=== PATIENT | female | born 1995 | race Caucasian/White ===

== ENCOUNTER 2017-07-20 19:06 | Outpatient (CLI) | payer BC, MEDICAID ==
[2017-07-20 21:00] LABS: URINE BARBITURATES SCREEN NEGATIVE; URINE METHADONE SCREEN NEGATIVE; URINE OPIATES LOW NEGATIVE; URINE PHENCYCLIDINE SCREEN NEGATIVE
[2017-07-20 21:18] LABS: APPEARANCE,URINE CLOUDY; BILIRUBIN,URINE NEGATIVE (NEGATIVE); GLUCOSE, URINE NEGATIVE (NEGATIVE); KETONES,URINE NEGATIVE (NEGATIVE); LEUKOCYTE ESTERASE,URINE TRACE (NEGATIVE); NITRITE,URINE NEGATIVE (NEGATIVE); PROTEIN,URINE NEGATIVE (NEGATIVE); URINE SPECIFIC GRAVITY 1.025
--- NOTE | 2017-07-20 21:24 | Non Stress Test Report ---
Non Stress Test Datetime Report Generated by CPN: 07/20/2017 21:24 DEMOGRAPHIC EGA NST: 39.5 INDICATION Indication for Study: Other Indication for Study (NST) Other: LC VITAL SIGNS Temperature - NST: 98.2 Pulse - NST: 111 RESP - NST: 18 NBPSYS NST: 141 NBPDIA NST: 79 MONITORING Monitor Explained: Monitor Explained; Test Explained; Patient Verbalized Understanding Time on Monitor: 07/20/2017 19:31 Time off Monitor: 07/20/2017 21:09 NST Duration: 98 NST INTERVENTIONS NST Interventions: None BABY A: [id number] BABY A Movement : Present Contraction Frequency : 10-15 FHR Baseline : 140 Accelerations : 15X15 Decelerations : None Variability : Moderate 6-25bpm NST Review: Meets Criteria for Reactive NST NST Review and Verified By : Hood Akbar RN NST Results: Reactive NST REPORT Report Trigger: Send Report Report Trigger: Send Report
== END 2017-07-20 21:05 | disposition home or self-care (01) ==
LOC: LC 19:06
PROVIDERS: ATTEND Obstetrics & Gynecology
PROC: 4A1HXCZ Monitoring of Products of Conception, Cardiac Rate, External Approach (ICD-10-PCS; principal; 2017-07-20)
DX: O47.1 False labor at or after 37 completed weeks of gestation (principal); Z3A.39 39 weeks gestation of pregnancy
CPT/HCPCS: 59025; 80307; 81005

== ENCOUNTER 2017-07-22 15:02 | Outpatient (CLI) | payer BC, MEDICAID ==
[2017-07-22 16:36] LABS: APPEARANCE,URINE SLIGHTLY-CLOUDY; BILIRUBIN,URINE NEGATIVE (NEGATIVE); GLUCOSE, URINE NEGATIVE (NEGATIVE); KETONES,URINE 20 mg/dL (NEGATIVE); LEUKOCYTE ESTERASE,URINE NEGATIVE (NEGATIVE); NITRITE,URINE NEGATIVE (NEGATIVE); PROTEIN,URINE NEGATIVE (NEGATIVE); URINE SPECIFIC GRAVITY 1.016; UROBILINOGEN,URINE NEGATIVE mg/dL (<2.0)
[2017-07-22 16:53] LABS: URINE BARBITURATES SCREEN NEGATIVE; URINE METHADONE SCREEN NEGATIVE; URINE OPIATES LOW NEGATIVE; URINE PHENCYCLIDINE SCREEN NEGATIVE
--- NOTE | 2017-07-22 18:27 | RADIOLOGY REPORT (SQ) ---
EXAM DESCRIPTION: U/S PROFILE W/O STRESS COMPLETED DATE/TIME: 07/22/2017 6:10 pm REASON FOR STUDY: nonreactive NST COMPARISON: None. TECHNIQUE: Limited hughes-scale realtime and static images of the fetus to measure specified parameter s. LIMITATIONS: None. FINDINGS: HEART RATE: 132 beats per minute. RICYK: 9.2 cm. POSTURE AND TONE: 2 points. MOVEMENT: 2 points. BREATHING MOVEMENT: 2 points. QUALITATIVE RICKY: 2 points. OTHER: No other significant finding. IMPRESSION: BIOPHYSICAL PROFILE: 06/15. Trimester of : Third - 28 weeks to delivery COMMENT: BREATHING MOVEMENTS: 2 POINTS: PRESENT 0 POINTS: ABSENT MOTION: 2 POINTS: PRESENT 0 POINTS: ABSENT TONE: 2 POINTS: PRESENT 0 POINTS: ABSENT AMNIOTIC FLUID VOLUME: 2 POINTS: LARGEST POCKET GREATER THAN 2 CM DEPTH. 0 POINTS: NO POCKET OF 2 CM. TECHNICAL DOCUMENTATION: JOB ID: [id number] [employer]- All Rights Reserved
--- NOTE | 2017-07-22 18:50 | Non Stress Test Report ---
Non Stress Test Datetime Report Generated by CPN: 07/22/2017 18:50 DEMOGRAPHIC EGA NST: 40.0 INDICATION Indication for Study: Ordered by Provider MONITORING Monitor Explained: Monitor Explained; Test Explained; Patient Verbalized Understanding Time on Monitor: 07/22/2017 15:48 Time off Monitor: 07/22/2017 17:25 NST Duration: 97 NST INTERVENTIONS NST Interventions: PO Hydration BABY A: [id number] BABY A Movement : Present Contraction Frequency : irregular FHR Baseline : 15 Accelerations : 15X15 Decelerations : None Variability : Moderate 6-25bpm NST Review: Meets Criteria for Reactive NST NST Review and Verified By : V MonK RN NST Results: Reactive NST REPORT Report Trigger: Send Report
== END 2017-07-22 18:50 | disposition home or self-care (01) ==
LOC: LC 15:02
PROVIDERS: ATTEND Obstetrics & Gynecology
PROC: 4A1HXCZ Monitoring of Products of Conception, Cardiac Rate, External Approach (ICD-10-PCS; principal; 2017-07-22)
DX: O48.0 Post-term pregnancy (principal); Z3A.40 40 weeks gestation of pregnancy
CPT/HCPCS: 59025; 76819; 80307; 81005; 94760

== ENCOUNTER 2017-07-27 09:16 | Outpatient (CLI) | payer BC, MEDICAID ==
[2017-07-27 09:47] LABS: APPEARANCE,URINE CLOUDY; BILIRUBIN,URINE NEGATIVE (NEGATIVE); GLUCOSE, URINE NEGATIVE (NEGATIVE); KETONES,URINE NEGATIVE (NEGATIVE); LEUKOCYTE ESTERASE,URINE TRACE (NEGATIVE); NITRITE,URINE NEGATIVE (NEGATIVE); PROTEIN,URINE NEGATIVE (NEGATIVE); URINE SPECIFIC GRAVITY 1.015; UROBILINOGEN,URINE NEGATIVE mg/dL (<2.0)
[2017-07-27 10:06] LABS: URINE BARBITURATES SCREEN NEGATIVE; URINE METHADONE SCREEN NEGATIVE; URINE OPIATES LOW NEGATIVE; URINE PHENCYCLIDINE SCREEN NEGATIVE
--- NOTE | 2017-07-27 11:44 | Non Stress Test Report ---
Non Stress Test Datetime Report Generated by CPN: 07/27/2017 11:44 DEMOGRAPHIC EGA NST: 40.5 INDICATION Indication for Study: Ordered by Provider Indication for Study (NST) Other: lc MONITORING Monitor Explained: Monitor Explained; Test Explained; Patient Verbalized Understanding Time on Monitor: 07/27/2017 09:30 Time off Monitor: 07/27/2017 11:20 NST Duration: 110 NST INTERVENTIONS NST Interventions: PO Hydration; Reposition Patient Physician Notified NST: J Aguero CNM BABY A: [id number] BABY A Movement : Present Contraction Frequency : irreg FHR Baseline : 125 Accelerations : 15X15 Decelerations : None Variability : Moderate 6-25bpm NST Review: Meets Criteria for Reactive NST NST Review and Verified By : BRANDAN Pavon Results: Reactive NST REPORT Report Trigger: Send Report
== END 2017-07-27 11:53 | disposition home or self-care (01) ==
LOC: LC 09:16
PROVIDERS: ATTEND Obstetrics & Gynecology
PROC: 4A1HXCZ Monitoring of Products of Conception, Cardiac Rate, External Approach (ICD-10-PCS; principal; 2017-07-27)
DX: O47.1 False labor at or after 37 completed weeks of gestation (principal); Z3A.40 40 weeks gestation of pregnancy
CPT/HCPCS: 59025; 80307; 81005

== ENCOUNTER 2017-07-28 11:35 | Inpatient (IN) | payer BC, MEDICAID ==
[~2017-07-28 11:35] MED LIST: ACETAMINOPHEN 100 ML IV SCH
[2017-07-28] MEDS ORDERED: RINGERS SOLUTION,LACTATED 1,000 ML IV PRN (12:09)
[2017-07-28] MEDS ORDERED: RINGERS SOLUTION,LACTATED 300 ML IV ONE (12:09)
[2017-07-28] MEDS ORDERED: PENICILLIN G POTASSIUM 5,000,000 UNIT in DEXTROSE 5%-WATER 100 ML IV ONE (12:09)
[2017-07-28] MEDS ORDERED: OXYTOCIN/NORMAL SALINE 20 UNIT/1,000 ML RTUINJ IV PRN ×2 (12:09→22:47)
[2017-07-28 12:33] LABS: APPEARANCE,URINE CLOUDY; BILIRUBIN,URINE NEGATIVE (NEGATIVE); GLUCOSE, URINE NEGATIVE (NEGATIVE); KETONES,URINE NEGATIVE (NEGATIVE); LEUKOCYTE ESTERASE,URINE MODERATE (NEGATIVE); NITRITE,URINE NEGATIVE (NEGATIVE); PROTEIN,URINE NEGATIVE (NEGATIVE); URINE SPECIFIC GRAVITY 1.006; UROBILINOGEN,URINE NEGATIVE mg/dL (<2.0)
[2017-07-28] MEDS ORDERED: PENICILLIN G-K 5 MILLION UNIT VIAL ONE ×2 (12:35→17:26)
[2017-07-28 12:53] LABS: URINE BARBITURATES SCREEN NEGATIVE; URINE METHADONE SCREEN NEGATIVE; URINE OPIATES LOW NEGATIVE; URINE PHENCYCLIDINE SCREEN NEGATIVE
[2017-07-28 13:17] LABS: ABSOLUTE EOSINOPHILS # (AUTO) 0.1 10^3/uL (0.0-0.6); ABSOLUTE LYMPHOCYTES (AUTO) 2.1 10^3/uL (0.5-4.7); ABSOLUTE MONOCYTES (AUTO) 0.8 10^3/uL (0.1-1.4); ABSOLUTE NEUT (AUTO) 13.3 10^3/uL (1.7-8.2); BASOPHILS % (AUTO) 0.2 % (0-2); EOSINOPHILS % (AUTO) 0.9 % (0-6); HEMOGLOBIN 15.3 g/dL (12.0-15.5); HGB HCT DIFFERENCE 2.9; MEAN CORPUSCULAR HGB CONC 35.6 g/dL (32.0-36.0); MEAN CORPUSCULAR VOLUME 96 fl (80-97); MONOCYTES % (AUTO) 4.8 % (3-13); RED BLOOD COUNT 4.49 10^6/uL (3.72-5.28); RED CELL DISTRIBUTION WIDTH 12.6 % (11.5-14.0); SEGMENTED NEUTROPHILS % (AUTO) 81.1 % (42-78); WHITE BLOOD COUNT 16.4 10^3/uL (4.0-10.5)
[2017-07-28] MEDS ORDERED: OXYTOCIN/NORMAL SALINE 20 UNIT/1,000 ML RTUINJ ONE ×3 (13:36→21:39)
[2017-07-28] MEDS ORDERED: PENICILLIN G POTASSIUM 2,500,000 UNIT in DEXTROSE 5%-WATER 50 ML IV SCH (16:10)
--- NOTE | 2017-07-28 16:41 | L&D Progress Notes ---
PROGRESS NOTES Datetime Report Generated by CPN: 07/28/2017 16:41 PROGRESS NOTE Impression: Reassuring Heart Rate Procedures: Artificial ROM; Sterile Vag Exam Plan: Continue Present Management Vital Signs : Reviewed; Within Normal Limits Comment: Pitocin infusing per pump. AROM without difficulty. Continue IOL. VAGINAL EXAM Dilatation: 4 Effacement: 70 Station: -2 MEMBRANES Membranes: Ruptured Membranes: Intact Amniotic Fluid Color: Clear FETUS A FHR - Baseline: 125 Monitoring: External US Variability: Moderate 6-25bpm Accelerations: 15X15 : 40.6 : 40.6 Presentation: Vertex SIGNATURE SIGNATURE: [id number] SIGNATURE: [id number] SIGNATURE: [id number] SIGNATURE: [id number] Assignment: Nikole Horn MD Signature: with User ID: [email or web address] : with User ID: [email or web address] : I personally evaluated and examined the patient in conjunction with the MLP and agree with the assessment, treatment plan and disposition. : I personally evaluated and examined the patient in conjunction with the MLP and agree with the assessment, treatment plan and disposition.
[2017-07-28] MEDS ORDERED: EPHEDRINE SULFATE INJ 50 MG/1 ML AMPULE ONE (18:16)
[2017-07-28] MEDS ORDERED: FENTANYL/BUPIVACAINE/NS/PF 200 MCG/100 ML RTUINJ EPI ONE (18:17)
[2017-07-28] MEDS ORDERED: BUPIVACAINE HCL 0.25 % INJ/PF (2.5 MG/1 ML) 30 ML VIAL ONE (18:17)
[2017-07-28] MEDS ORDERED: LIDOCAINE 1% INJ-PF (10 MG/ML) 30 ML SDV ONE (20:07)
[2017-07-28] MEDS ORDERED: MISOPROSTOL 0.2 MG TABLET ONE ×2 (20:07→22:13)
[2017-07-28] MEDS ORDERED: CEFAZOLIN 2 GM/D5W RTU 2 GM/50 ML RTUPB IV ONE (21:27)
[2017-07-28] MEDS ORDERED: CITRIC ACID/SODIUM CITRATE ORAL SOLN 15 ML UDCUP ONE (21:27)
[2017-07-28] MEDS ORDERED: LIDOCAINE 2% INJ-PF (20 MG/ML) 10 ML AMPUL ONE (21:27)
[2017-07-28] MEDS ORDERED: OXYTOCIN 10 UNIT/ML VIAL ONE (21:39)
[2017-07-28] MEDS ORDERED: MIDAZOLAM 2 MG/2 ML INJ ONE (21:39)
[2017-07-28] MEDS ORDERED: MORPHINE SULFATE 10 MG/ML INJ ONE (21:40)
[2017-07-28] MEDS ORDERED: ACETAMINOPHEN 100 ML IV ONE (22:41)
[2017-07-28] MEDS ORDERED: ACETAMINOPHEN 325 MG TABLET PO PRN (22:47)
[2017-07-28] MEDS ORDERED: DIPH/PERTUSS(ACELL)/TETANUS VAC/PF 0.5 ML SYR (>=10YO) IM PRN (22:47)
[2017-07-28] MEDS ORDERED: MEASLES,MUMPS&RUBELLA VACC/PF 0.5 ML VIAL SUBCUT PRN (22:47)
[2017-07-28] MEDS ORDERED: OXYCODONE-ACETAMINOPHEN 5-325 MG TABLET PO PRN ×2 (22:47)
[2017-07-28] MEDS ORDERED: PROMETHAZINE HCL INJ 25 MG/1 ML VIAL IV PRN (22:47)
[2017-07-28] MEDS ORDERED: HYDROMORPHONE HCL INJ/PF 2 MG/ML AMPULE IV PRN (22:47)
[2017-07-28] MEDS ORDERED: SIMETHICONE 80 MG TAB.CHEW PO PRN (22:47)
[2017-07-28] MEDS ORDERED: CEFAZOLIN INJ 1 GM VIAL ONE (23:06)
[2017-07-29] MEDS ORDERED: IBUPROFEN 800 MG TABLET ONE (00:12)
--- NOTE | 2017-07-29 00:33 | OPERATIVE REPORT E ---
Operative Report NAME: NANI GONZALEZ : 1995 AGE: 22Y DATE OF SURGERY: 07/28/2017 ROOM: LR200 PREOPERATIVE DIAGNOSIS: Intrauterine at 40 weeks and 6 days with nonreassuring heart tones in second stage labor, cephalopelvic disproportion. POSTOPERATIVE DIAGNOSIS: Intrauterine at 40 weeks and 6 days with nonreassuring heart tones in second stage labor, cephalopelvic disproportion. OPERATION PERFORMED: Attempted vacuum extraction followed by primary low-transverse cervical suction. SURGEON: MISSY WATTS M.D. ANESTHESIA: Epidural which was bolused. ESTIMATED BLOOD LOSS: 600 mL. SPECIMEN TO PATHOLOGY: Placenta, which was very calcified. FINDINGS: Powell male . Vertex presentation. Apgars 8 and 9. Weight was 7 pounds, 0 ounces. Normal uterus, tubes, and ovaries. DESCRIPTION OF PROCEDURE: When the patient was complete and pushing at +3 station, the vertex was noted to be in an JUSTINE position. When the patient had repetitive late decelerations, Kiwi vacuum was offered and applied. The Kiwi was applied to the vertex and pulled over a total of 4 contractions with no pop offs and a maximum pressure of 550. The patient did not have sustained descent in between the contractions. The decision was made to abort further attempts at the vacuum and the patient was consented for section. Bahena catheter was replaced. Patient was taken to the operating room with her epidural bolused. She was prepped and draped in the standard fashion. Anesthesia was found to be adequate. Pfannenstiel skin incision was made and the abdomen was entered in layers in the standard fashion. On entry, the inferior epigastric on the patient's right was nicked and bleeding. This was oversewn with a stitch of 2-0 Vicryl for hemostasis. After entry into the peritoneal cavity a low-transverse cervical incision was made. The nurse had been at the bedside with the patient and the patient's legs were frog legged when she was being prepped. The nurse elevated the vertex up as I reached inside the hysterotomy incision and elevated the head of the pelvis. The vertex then delivered. The shoulders and body delivered easily thereafter. A Bandolier cord was noted during this process. The nasopharynx and oropharynx were bulb suctioned. Cord was clamped and cut and was handed to Pediatrics who were present. The placenta was manually extracted and noted to be quite calcified. The uterus was exteriorized and cleared of all clots and debris. The hysterotomy incision was closed with 0 Monocryl in a running-lock fashion. The bladder flap was reapproximated in a similar fashion. Excellent hemostasis was observed. Uterus, tubes, and ovaries were returned to the peritoneal cavity. The cavity was irrigated and hemostasis, again, assured. The peritoneum was closed with 2-0 Vicryl in a pursestring fashion. The subfascial spaces were inspected and noted to be hemostatic. The fascia was closed with 0 Vicryl. The subcutaneous spaces were irrigated and hemostasis achieved with cautery. The subcutaneous tissues were closed with 3-0 plain gut. A subcuticular stitch with 3-0 Vicryl was then performed. An OpSite dressing was applied. Cytotec 1000 mcg was placed per rectum to maintain good uterine tone after a prolonged labor to complete pushing. The patient was taken to recovery in stable condition. All sponge, needle, lap, and instrument counts were correct x2. DICTATING PHYSICIAN: MISSY WATTS M.D. [id number] PHY#: [id number] ID: [id number] JOB#: [id number] ACCT: [id number] cc:MISSY WATTS M.D. >
--- NOTE | 2017-07-29 00:54 | Admission Physical ---
Datetime Report Generated by CPN: 07/29/2017 00:54 CURRENT ADMISSION Indication for Induction: Post Dates Admit Plan: Admit to Unit; Initiate Labor Induction Protocol ALLERGIES Medication Allergies: No Medication Allergies: No Known Allergies (07/27/2017) Medication Allergies: No Known Allergies (07/22/2017) Medication Allergies: No Known Allergies (07/20/2017) Medication Allergies: No Latex: No Latex Allergies Food Allergies: No Environmental Allergies: No OBSTETRICAL HISTORY EDC: 07/22/2017 00:00 : 2 Para: 0 SAB: 1 Gestational Diabetes: No Rh Sensitization: No Incompetent Cervix: No ANIKA: No Infertility: No ART Treatment: No Uterine Anomaly: No IUGR: No Hx Previous C/S: No Macrosomia: No Hx Loss/Stillborn: No PIH: No Hx : No Placenta Previa/Abruption: No Depression/PP Depression: No PTL/PROM: No Post Hemorrhage: No Current Procedures: Ultrasound; NST Obstetrical History Comments: G1- SAB 2015 G2- Current SEE RECORDS Alcohol: No Marijuana : No Cocaine: No Other Illicit Drugs: No Cigarettes: Current Everyday Smoker. 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 Surgery: No Heart Disease: No Hosp/Surgery: No Autoimmune Disorder: No Anesthetic Complications: No Kidney Disease: No Abnormal Pap Smear: No Neuro/Epilepsy: No Psychiatric Disorders: Yes Other Medical Diseases: No Hepatitis/Liver Disease: No Significant Family History: No Varicosities/Phlebitis: No Trauma/Violence : No Medical History Comments: Pt has depression and bipolar disorder INFECTIOUS HISTORY Gonorrhea: No Genital Herpes: No Chlamydia: No Tuberculosis: No Syphilis: No Hepatitis: No HIV/AIDS Exposure: No Rash or Viral Illness: No HPV: No PHYSICAL EXAM General: Normal HEENT: Normal Neurologic: Normal Thyroid: Deferred Heart: Normal Lungs: Normal Breast: Deferred Back: Normal Abdomen: Normal Genitourinary Exam: Deferred Extremities: Normal DTRs: Normal Pelvic Type: Not Done Physical Exam Comments: Gravid uterus Vital Signs: Reviewed VAGINAL EXAM Dilatation: 4 Effacement: 70 Station: -2 MEMBRANES Membranes: Ruptured Membranes: Intact Amniotic Fluid Color: Clear FETUS A Monitoring: External US FHR- Baseline: 150 Variability: Moderate 6-25bpm Accelerations: Absent Presentation: Vertex Admit Comment: Scheduled IOL for postdates Reportedly 2-3 cm on SVE yesterday Obesity Hx depression-no meds Smoker Rubella-equivocal Positive GBS test-begin antibiotics Failed 1hrgtt, passed 3hrgtt Admit and induce with Pitocin records available PLANS FOR LABOR AND DELIVERY Labor and Delivery: None Pain Management: Natural Feeding Preference: Breast Benefit of Breast Feed Discussed: Yes Circumcision: Yes INFORMED CONSENT Assignment: Nikole Horn MD Signature: with User ID: Yessica : with User ID: [email or web address] : I personally evaluated and examined the patient in conjunction with the P and agree with the assessment, treatment plan and disposition. : I personally evaluated and examined the patient in conjunction with the MLP and agree with the assessment, treatment plan and disposition.
[2017-07-29] MEDS: CEFAZOLIN 1 GM/D5W RTU 1 GM/50 ML RTUPB IV SCH ×3 (05:05→19:06)
[2017-07-29] MEDS: IBUPROFEN 800 MG TABLET PO PRN ×2 (05:06→18:40)
[2017-07-29 06:37] LABS: HEMATOCRIT 38.7 % (36.0-47.0); HEMOGLOBIN 13.5 g/dL (12.0-15.5); HGB HCT DIFFERENCE 1.8; MEAN CORPUSCULAR HEMOGLOBIN 33.5 pg (27.0-33.4); MEAN CORPUSCULAR VOLUME 96 fl (80-97); RED BLOOD COUNT 4.04 10^6/uL (3.72-5.28); RED CELL DISTRIBUTION WIDTH 12.6 % (11.5-14.0); WHITE BLOOD COUNT 18.2 10^3/uL (4.0-10.5)
--- NOTE | 2017-07-29 09:08 | PDOC PROGRESS REPORT ---
Subjective-OB Subjective: Post Delivery Day: 22 year old. Denies any needs at this time Feeling better this Am, no flatus, but feeling gas, eating well, voiding, OOB to BR, breast feeding Physical Exam (OB) Vital Signs: Temp Pulse Resp BP Pulse Ox 98.6 F 97 16 131/74 H 99 07/29/17 07:44 07/29/17 07:44 07/29/17 07:44 07/29/17 07:44 07/29/17 07:44 Intake & Output 07/28/17 07/29/17 07/30/17 06:59 06:59 06:59 Intake Total 1340 Output Total 2450 Balance -1110 Weight 113.45 kg - Dressing Removed: No - op site Incision: Dressing - Lochia Lochia Amount: Small 10-25 ml Lochia Color: Rubra/Red - Abdomen Description: Soft, Round Hernia Present: No Fundal Description: Firm, Midline Fundal Height: u/u - u/2 Objective-Diagnostic Laboratory: 07/29/17 05:56 07/28/17 07/28/17 07/28/17 11:47 12:36 12:36 WBC 16.4 H RBC 4.49 Hgb 15.3 Hct 43.0 MCV 96 MCH 34.0 H MCHC 35.6 RDW 12.6 Plt Count 199 Seg Neutrophils % 81.1 H Lymphocytes % 13.0 Monocytes % 4.8 Eosinophils % 0.9 Basophils % 0.2 Absolute Neutrophils 13.3 H Absolute Lymphocytes 2.1 Absolute Monocytes 0.8 Absolute Eosinophils 0.1 Absolute Basophils 0.0 Urine Color YELLOW Urine Appearance CLOUDY Urine pH 6.0 Ur Specific Maceo 1.006 Urine Protein NEGATIVE Urine Glucose (UA) NEGATIVE Urine Ketones NEGATIVE Urine Blood NEGATIVE Urine Nitrite NEGATIVE Ur Leukocyte Esterase MODERATE H Blood Type O POSITIVE Antibody Screen NEGATIVE 07/29/17 05:56 WBC 18.2 H RBC 4.04 Hgb 13.5 Hct 38.7 MCV 96 MCH 33.5 H MCHC 35.0 RDW 12.6 Plt Count 171 Seg Neutrophils % Lymphocytes % Monocytes % Eosinophils % Basophils % Absolute Neutrophils Absolute Lymphocytes Absolute Monocytes Absolute Eosinophils Absolute Basophils Urine Color Urine Appearance Urine pH Ur Specific Maceo Urine Protein Urine Glucose (UA) Urine Ketones Urine Blood Urine Nitrite Ur Leukocyte Esterase Blood Type Antibody Screen Assessment and Plan(PN) - Assessment and Plan (1) delivery, delivered, current hospitalization Is this a current diagnosis for this admission?: Yes (2) GBS (group B Streptococcus carrier), +RV culture, currently Is this a current diagnosis for this admission?: Yes - Time Spent with Patient Time with patient: Less than 15 minutes Medications reviewed and adjusted accordingly: Yes - Disposition Anticipated Discharge: Home Within: within 24 hours
[2017-07-29] MEDS: DOCUSATE SODIUM 100 MG CAPSULE PO SCH ×2 (09:33→18:40)
[2017-07-29] MEDS: PRENATAL VITAMIN W-O CA NO5/FE FUMARATE/FA CAPSULE PO SCH (09:33)
[2017-07-29 09:58] LABS: HEMATOCRIT 38.3 % (36.0-47.0); HEMOGLOBIN 13.8 g/dL (12.0-15.5); HGB HCT DIFFERENCE 3.1; MEAN CORPUSCULAR HEMOGLOBIN 34.5 pg (27.0-33.4); MEAN CORPUSCULAR HGB CONC 36.1 g/dL (32.0-36.0); MEAN CORPUSCULAR VOLUME 95 fl (80-97); RED BLOOD COUNT 4.01 10^6/uL (3.72-5.28); RED CELL DISTRIBUTION WIDTH 12.3 % (11.5-14.0); WHITE BLOOD COUNT 18.7 10^3/uL (4.0-10.5)
[2017-07-30] MEDS: IBUPROFEN 800 MG TABLET PO PRN ×2 (00:33→07:01)
[2017-07-30 07:41] LABS: HEMATOCRIT 38.2 % (36.0-47.0); HEMOGLOBIN 13.7 g/dL (12.0-15.5); HGB HCT DIFFERENCE 2.9; MEAN CORPUSCULAR HEMOGLOBIN 34.7 pg (27.0-33.4); MEAN CORPUSCULAR HGB CONC 35.8 g/dL (32.0-36.0); MEAN CORPUSCULAR VOLUME 97 fl (80-97); RED BLOOD COUNT 3.94 10^6/uL (3.72-5.28); RED CELL DISTRIBUTION WIDTH 12.9 % (11.5-14.0); WHITE BLOOD COUNT 15.6 10^3/uL (4.0-10.5)
[2017-07-30] MEDS: DOCUSATE SODIUM 100 MG CAPSULE PO SCH (09:01)
[2017-07-30] MEDS: PRENATAL VITAMIN W-O CA NO5/FE FUMARATE/FA CAPSULE PO SCH (09:01)
--- NOTE | 2017-07-30 09:20 | PDOC DISCHARGE SUMMARY ---
Final Diagnosis Discharge Date: 07/30/17 - Final Diagnosis (1) delivery, delivered, current hospitalization Is this a current diagnosis for this admission?: Yes (2) GBS (group B Streptococcus carrier), +RV culture, currently Is this a current diagnosis for this admission?: Yes Discharge Data - Discharge Medication Home Medications: Vit,Calc76/Iron/Folic [Pnv 29-1 Tablet] 1 each PO DAILY 07/20/17 Docusate Sodium [Colace 100 mg Capsule] 100 mg PO BID #60 capsule 07/30/17 Ibuprofen [Motrin 800 mg Tablet] 800 mg PO Q6HP PRN #60 tablet 07/30/17 Oxycodone HCl/Acetaminophen [Percocet 5-325 mg Tablet] 2 tab PO Q4HP PRN #30 tablet 07/30/17 Gestational Age: 40.6 Reason(s) for Admission: Onset of Labor, Group B Strep Positive Procedures: NST Intrapartum Procedure(s): : Low Cervical, Transverse - [place] Data Baby 1 Male at 1 minute: 8 at 5 minutes: 9 Weight: 3.175 kg Home with Mother: Yes Complications: No - Diagnosis Test Laboratory: Temp Pulse Resp BP Pulse Ox 98.1 F 89 15 116/78 99 07/30/17 08:04 07/30/17 08:04 07/30/17 08:04 07/30/17 08:04 07/30/17 08:04 07/28/17 07/28/17 07/29/17 11:47 12:36 05:56 RBC 4.49 4.04 Hgb 15.3 13.5 Hct 43.0 38.7 Urine Opiates Screen NEGATIVE 07/29/17 07/30/17 09:26 07:19 RBC 4.01 3.94 Hgb 13.8 13.7 Hct 38.3 38.2 Urine Opiates Screen - Discharge information/Instructions Discharge Activity: Activity As Tolerated, No Driving, No Lifting Over 10 Pounds , Pelvic Rest, No tub bath Discharge Diet: Regular Disposition: HOME, SELF-CARE Follow up with: [facility] in: 1, Weeks
[2017-07-30 12:51] VITALS: BP 131/77
--- NOTE | 2017-08-02 09:54 | Delivery Summary ---
Del Sum A-C Datetime Report Generated by CPN: 08/02/2017 09:54 DELIVERY PERSONNEL DELIVERY PERSONNEL: [id number] Delivery Doctor:: Nikole Horn MD Anesthesiologist:: Choco Gatica MD AUDIO RECORDING ENGINEER:: Kofi Durant CRNA Labor and Delivery Nurse:: Emilia Melton RNwood turner Nurse:: Brunilda Reeves RN Neonatal Nurse Practitioner:: ALMAZ Luong Nursery Nurse:: Floridalma Torres RN MSN Nursery Nurse:: Breann Cordoba RN Veneer Measurer/PAPER BAG MACHINE OPERATOR: ST Jenni Veneer Measurer/PAPER BAG MACHINE OPERATOR: Leticia Fountain, ST MATERNAL INFORMATION Delivery Anesthesia: Epidural Medications After Delivery: Pitocin Bolus-Please Comment; Pitocin Drip 20 Units/1000ml NSS; Other-Please Comment Meds After Delivery Comment: Cytotec 1000mcg MT Maternal Complications: None LABOR SUMMARY EDC: 07/22/2017 00:00 No. Babies in Womb: 1 Attempted: No Labor Anesthesia: Epidural LABOR INFORMATION Reason for Induction: Post Dates Onset of Labor: 07/28/2017 13:27 Complete Dilatation: 07/28/2017 20:28 Oxytocin: Induction Group B Beta Strep: positive Antibiotics # of Doses: 2 Antibiotics Time of Last Dose: 1729 Name of Antibiotic Given: PCN Steroids Given: None Reason Steroids Not Administered: Not Applicable MEMBRANES Membranes Rupture Method: Artificial Rupture of Membranes: 07/28/2017 13:27 Length of Rupture (hr): 8.43 Amniotic Fluid Color: Clear Amniotic Fluid Amount: Moderate Amniotic Fluid Odor: Normal STAGES OF LABOR Stage 1 hr: 7 Stage 1 min: 1 Stage 2 hr: 1 Stage 2 min: 25 Stage 3 hr: 0 Stage 3 min: 1 Total Time in Labor hr: 8 Total Time in Labor min: 27 VAGINAL DELIVERY Episiotomy: None Laceration Extension: N/A Laceration Type: None Laceration Repair: Not Applicable Sponge Count Correct: Yes Sharps Count Correct: Yes CSECTION DELIVERY Primary Indication: Arrest of Descent Secondary Indication: Nonreassuring Status CSection Urgency: Non-Scheduled CSection Incidence: Primary Labor: Labor Elective: Nonelective CSection Incision: Lower Uterine Transverse BABY A INFORMATION Infant Delivery Date/Time: 07/28/2017 21:53 Method of Delivery: Born in Route : No : N/A Forceps: N/A Vacuum Extraction: Failed Shoulder Dystocia : No ASSISTED DELIVERY BABY A Indication for Assisted Delivery: Lates with bradycardia Catheter Prior to Procedure: Yes Station Vacuum/Forcep Apply: +3 Vacuum Number of Pulls: 4 Vacuum Number of PopOffs: 0 Vacuum Maximum Pressure Obtained: 550 Reduce Pressure btwn Ctx: No Vacuum Vacuum Drier Operator: KIWI Total Time Vacuum Applied: 5 mins PRESENTATION/POSITION BABY A Presentation: Cephalic Cephalic Presentation: Vertex Breech Presentation: N/A PLACENTA INFORMATION BABY A Placenta Delivery Time : 07/28/2017 21:54 Placenta Method of Delivery: Manual Removal Placenta Status: Delivered SCORES BABY A Heart Rate 1 min: >100 bpm Resp Effort 1 min: Good Cry Reflex Irritability 1 min: Cough or Sneeze or Pulls Away Muscle Tone 1 min: Active Motion Color 1 min: Blue/Pale Resuscitation Effort 1 min: Tactile Stimulation SCORE 1 MIN: 8 Heart Rate 5 min: >100 bpm Resp Effort 5 min: Good Cry Reflex Irritability 5 min: Cough or Sneeze or Pulls Away Muscle Tone 5 min: Active Motion Color 5 min: Body Olivia Lopez De Gutierrez, Extremities Blue SCORE 5 MIN: 9 INFORMATION BABY A Gestational Age at Delivery: 40.6 Gestational Status: Full Term- 39- 40.6 Weeks Outcome : Liveborn Infant Condition : Stable Infant Sex: Male IDENTIFICATION BABY A Infant Verification Date/Time: 07/28/2017 22:21 ID Band Number: [id number] Mother's Name Verified: Yes Infant RN Verifying Infant: Vasyl Fair RN Additional Verifying Personnel: US Mercedez/SAVITA WEIGHT/LENGTH BABY A Birthweight (gm): 3235 Weight (lb): 7 Infant Weight (oz): 2 Length (in): 20.50 Length (cm): 52.07 CORD INFORMATION BABY A No. Cord Vessels: 3 Nuchal Cord : N/A Nuchal Cord- Other: [place]ier cord Cord Blood Taken: Yes-For Storage (Mom's Blood type +) Infant Suction: Mouth; Nose ASSESSMENT BABY A Infant Complications: Extended Bradycardia Physical Findings at Delivery: Caput Succedaneum; Molding of the Head Infant Respirations: Appears Normal Skin to Skin: Yes Skin to Skin Time (min): 45 Bank Vault Clerk/ALS Called : No Care By: Wayne Torres RN Transferred To: [facility] BABY B INFORMATION : N/A SIGNATURES : I personally evaluated and examined the patient in conjunction with the MLP and agree with the assessment, treatment plan and disposition. : I personally evaluated and examined the patient in conjunction with the P and agree with the assessment, treatment plan and disposition.
== END 2017-07-30 13:27 | disposition home or self-care (01) | DRG 765 ==
LOC: LR 11:35 → 2S 07-29 00:35
PROVIDERS: ADMIT Specialist; ATTEND Specialist
PROC: 10D00Z1 Extraction of Products of Conception, Low, Open Approach (ICD-10-PCS; principal; 2017-07-28)
PROC: 4A1HXCZ Monitoring of Products of Conception, Cardiac Rate, External Approach (ICD-10-PCS; 2017-07-28)
PROC: 10907ZC Drainage of Amniotic Fluid, Therapeutic from Products of Conception, Via Natural or Artificial Opening (ICD-10-PCS; 2017-07-28)
DX: O76 Abnormality in fetal heart rate and rhythm complicating labor and delivery (principal); Z68.41 Body mass index [BMI] 40.0-44.9, adult; O66.5 Attempted application of vacuum extractor and forceps; O99.824 Streptococcus B carrier state complicating childbirth; O48.0 Post-term pregnancy; O62.1 Secondary uterine inertia; O99.334 Smoking (tobacco) complicating childbirth; O99.344 Other mental disorders complicating childbirth; O99.214 Obesity complicating childbirth; E66.9 Obesity, unspecified; F32.9 Major depressive disorder, single episode, unspecified; F17.200 Nicotine dependence, unspecified, uncomplicated; Z3A.40 40 weeks gestation of pregnancy; Z37.0 Single live birth
CPT/HCPCS: 1961; 36415; 80307; 81005; 85025; 85027; 86592; 86850; 86900; 86901; 88307; 90707; 94799; J0131; J0690; J2250; J2270; J2540; J2590; J3490

== ENCOUNTER → 2020-06-18 | Outpatient (CLI) | payer SELFPAY ==
--- NOTE | 2020-06-18 15:12 | RADIOLOGY REPORT (SQ) ---
EXAM DESCRIPTION: U/S [id number] TRNABD 1GES W/ODOP IMAGES COMPLETED DATE/TIME: 06/18/2020 1:50 pm REASON FOR STUDY: Z34.81 ENCOUNTER FOR SUPRVSN OF NORMAL , FIRST TRIMESTER Z34.81 ENCOUNTE R FOR SUPRVSN OF NORMAL , FIRST TRIM COMPARISON: None. TECHNIQUE: Transabdominal static and realtime grayscale images acquired of the pelvis. Additional se lected spectral and color Doppler images recorded. All images [facility] PACs. [facility] CLINICAL DATES: JUVENCIO: 01/21/2021. EGA: 9 weeks 0 days LIMITATIONS: None. FINDINGS: FETUS: Single Living intrauterine . ULTRASOUND EGA: 7 weeks 5 days ULTRASOUND JUVENCIO: 01/30/2021 EFW: Not applicable less than 20 weeks. CRL: 1.43 cm FHR: 169 beats per minute. SURVEY: Too early to assess. AMNIOTIC FLUID: Adequate amount. PLACENTA: Not yet developed due to early gestation. SUBCHORIONIC BLEED: No. SIZE OF BLEED: Not applicable. UTERUS: Uterus measures 11.4 x 5.7 x 5.6 cm. No masses. No anomalies. CERVICAL LENGTH: 3.0 cm Closed. RIGHT ADNEXA: The right over measures 2.1 x 2.4 x 1.9 cm. Normal ovary with normal vascular flow. No adnexal free fluid. No adnexal masses. LEFT ADNEXA: The left ovary measures 3.4 x 1.7 x 1.8 cm. Normal ovary with normal vascular flow. No adnexal free fluid. No adnexal masses. FREE FLUID: None. OTHER: No other significant finding. IMPRESSION: LIVING INTRAUTERINE . EGA: 7 weeks 5 days Trimester of : First trimester - 0 to 13 weeks. TECHNICAL DOCUMENTATION: JOB ID: [id number] [employer]- All Rights Reserved rev-03/25 Reading location - IP/workstation name: [email or web address]
== END ==
LOC: RAD 13:29
PROVIDERS: ATTEND Midwife
DX: Z34.81 Encounter for supervision of other normal pregnancy, first trimester (principal)
CPT/HCPCS: 76801